=== PATIENT | male | born 1935 | race Caucasian/White ===

== ENCOUNTER → 2016-09-02 | Outpatient (CLI) | payer MEDICARE ==
[2016-09-02 16:45] LABS: BICARBONATE 28.3 MEQ/L (21.0-32.0); POTASSIUM 3.8 MEQ/L (3.5-5.1)
== END ==
LOC: PLAB 12:28
PROVIDERS: ATTEND Family Medicine
DX: I12.9 Hypertensive chronic kidney disease with stage 1 through stage 4 chronic kidney disease, or unspecified chronic kidney disease (principal); N18.3 Chronic kidney disease, stage 3 (moderate)
CPT/HCPCS: 36415; 80048

== ENCOUNTER → 2017-07-21 | Outpatient (CLI) | payer MEDICARE ==
[2017-07-21 09:23] LABS: AUTOMATED NEUTROPHIL # 2.8 TH/MM3 (1.8-7.7); EOSINOPHIL # 0.2 TH/MM3 (0-0.4); EOSINOPHIL % 4.3 % (0.0-4.0); HEMATOCRIT 44.8 % (39.0-51.0); HEMO FLAGS DIFF FINAL; LYMPH % 24.7 % (9.0-44.0); LYMPHOCYTE # 1.2 TH/MM3 (1.0-4.8); MEAN CORPUSCULAR HEMOGLOBIN 34.6 PG (27.0-34.0); MEAN CORPUSCULAR HGB CONC 34.6 % (32.0-36.0); MONO % 11.7 % (0.0-8.0); NEUT % 58.3 % (16.0-70.0); PLATELET COUNT 162 TH/MM3 (150-450); RED BLOOD COUNT 4.48 MIL/MM3 (4.50-5.90); RED CELL DISTRIBUTION WIDTH 12.9 % (11.6-17.2); WHITE BLOOD COUNT 4.8 TH/MM3 (4.0-11.0)
[2017-07-21 09:39] LABS: ANION GAP 8 MEQ/L (5-15); AST (GOT) 24 U/L (15-37); BICARBONATE 28.3 MEQ/L (21.0-32.0); BLOOD UREA NITROGEN 25 MG/DL (7-18); CHLORIDE 105 MEQ/L (98-107); GLOMERULAR FILTRATION RATE 46 ML/MIN (>89); GLUCOSE,FASTING 96 MG/DL (74-99); POTASSIUM 3.8 MEQ/L (3.5-5.1); SODIUM (NA) 141 MEQ/L (136-145)
[2017-07-21 09:44] LABS: ALKALINE PHOSPHATASE 32 U/L (45-117); ALT (GPT) 20 U/L (12-78); HDL CHOLESTEROL 57.1 MG/DL (40.0-60.0); LDL CHOLESTEROL 122 MG/DL (0-99); TOTAL BILIRUBIN ADULT 0.9 MG/DL (0.2-1.0)
== END ==
LOC: PLAB 07:28
PROVIDERS: ATTEND Family Medicine
DX: I10 Essential (primary) hypertension (principal); E78.2 Mixed hyperlipidemia; Z00.00 Encounter for general adult medical examination without abnormal findings
CPT/HCPCS: 36415; 80053; 80061; 85025

== ENCOUNTER → 2017-12-07 | Outpatient (CLI) | payer MEDICARE ==
[2017-12-07 10:17] LABS: AUTOMATED NEUTROPHIL # 3.8 TH/MM3 (1.8-7.7); BASOPHIL % 0.8 % (0.0-2.0); EOSINOPHIL # 0.1 TH/MM3 (0-0.4); EOSINOPHIL % 2.5 % (0.0-4.0); HEMATOCRIT 45.6 % (39.0-51.0); HEMO FLAGS DIFF FINAL; HEMOGLOBIN 15.6 GM/DL (13.0-17.0); LYMPHOCYTE # 1.1 TH/MM3 (1.0-4.8); MEAN CELL VOLUME 99.4 FL (80.0-100.0); MEAN CORPUSCULAR HGB CONC 34.2 % (32.0-36.0); MEAN PLATELET VOLUME 8.3 FL (7.0-11.0); MONO % 11.7 % (0.0-8.0); MONOCYTE # 0.7 TH/MM3 (0-0.9); PLATELET COUNT 171 TH/MM3 (150-450); RED BLOOD COUNT 4.59 MIL/MM3 (4.50-5.90); RED CELL DISTRIBUTION WIDTH 13.1 % (11.6-17.2); WHITE BLOOD COUNT 5.7 TH/MM3 (4.0-11.0)
[2017-12-07 10:42] LABS: ALBUMIN 3.7 GM/DL (3.4-5.0); ANION GAP 8 MEQ/L (5-15); AST (GOT) 24 U/L (15-37); BICARBONATE 28.2 MEQ/L (21.0-32.0); BLOOD UREA NITROGEN 16 MG/DL (7-18); CALCIUM 8.4 MG/DL (8.5-10.1); CHLORIDE 106 MEQ/L (98-107); CHOLESTEROL 173 MG/DL (120-200); CREATININE 1.21 MG/DL (0.60-1.30); GLOMERULAR FILTRATION RATE 58 ML/MIN (>89); GLUCOSE,FASTING 92 MG/DL (74-99); POTASSIUM 3.5 MEQ/L (3.5-5.1); SODIUM (NA) 142 MEQ/L (136-145); TRIGLYCERIDES 93 MG/DL (42-150)
[2017-12-07 10:45] LABS: ALKALINE PHOSPHATASE 30 U/L (45-117); ALT (GPT) 25 U/L (12-78); CHOLESTEROL/ HDL RATIO 3.78 RATIO; HDL CHOLESTEROL 45.7 MG/DL (40.0-60.0); LDL CHOLESTEROL 109 MG/DL (0-99); TOTAL BILIRUBIN ADULT 1.5 MG/DL (0.2-1.0); TOTAL PROTEIN 7.1 GM/DL (6.4-8.2)
== END ==
LOC: PLAB 08:33
DX: E78.2 Mixed hyperlipidemia (principal); N18.3 Chronic kidney disease, stage 3 (moderate)
CPT/HCPCS: 36415; 80053; 80061; 85025

== ENCOUNTER 2018-06-28 22:58 | Inpatient (IN) ==
[2018-06-28 23:51] LABS: Baso # (Auto) 0.1 th/mm3 (0.0-0.2); Baso % (Auto) 0.7 % (0.0-2.0); Eos # (Auto) 0.1 th/mm3 (0.0-0.4); Eos % (Auto) 1.5 % (0.0-4.0); Hematocrit 42.2 % (39.0-51.0); Hemoglobin 14.3 gm/dL (13.0-17.0); Lymph # (Auto) 0.7 th/mm3 (1.0-4.8); Mean Corpuscular HGB Conc 33.9 % (32.0-36.0); Mean Corpuscular Hemoglobin 33.5 pg (27.0-34.0); Mean Corpuscular Volume 99.1 fL (80.0-100.0); Mean Platelet Volume 9.6 fL (7.0-11.0); Mono # (Auto) 0.6 th/mm3 (0.0-0.9); Mono % (Auto) 7.4 % (0.0-8.0); Neut # (Auto) 6.5 th/mm3 (1.8-7.7); Neut % (Auto) 81.4 % (16.0-70.0); Platelet Count 118 th/mm3 (150-450); Red Blood Count 4.26 mil/mm3 (4.50-5.90); Red Cell Distribution Width 13.8 % (11.6-17.2)
[2018-06-29 00:13] LABS: Alkaline Phosphatase 33 U/L (45-117); Total Protein 6.6 g/dL (6.4-8.2); Troponin I 0.03 ng/mL (0.02-0.05)
[2018-06-29 00:15] LABS: Alanine Aminotransferase 42 U/L (12-78); Albumin 3.8 g/dL (3.4-5.0); Anion Gap 5 meq/L (5-15); Aspartate Aminotransferase 40 U/L (15-37); Blood Urea Nitrogen 35 mg/dL (7-18); Calcium 8.4 mg/dL (8.5-10.1); Carbon Dioxide 22.8 meq/L (21.0-32.0); Chloride 113 meq/L (98-107); Glomerular Filtration Rate 45 mL/min (>89); Glucose,Random 109 mg/dL (74-106); Potassium 4.9 meq/L (3.5-5.1); Sodium 141 meq/L (136-145)
--- NOTE | 2018-06-29 01:22 | ED ---
HPI General Chief Complaint: Shortness of Breath/Dyspnea Stated Complaint: trouble breathing Time Seen by Provider: 06/28/18 23:18 Source: patient and family Limitations: no limitations History of Present Illness The patient is an 82-year-old male with history of attention presented with complaint of shortness of breath all day. He stated started around 10 AM. He denies COPD. He quit smoking about 40 years ago. There is no fever or cough even though he stated that he felt warm. He is on Eliquis and he did not know why but after we obtained EKG shows Atrial fibrilation, no ST elevation or depression, and no arrhythmias. No significant T-wave inversions. Appears that he has atrial fibrillation which he confirmed. denies any chest pain at this time. No pleurisy. No palpitations. Hypertensive on arrival with stable vitals. Does not have Diagnosis of CHF or COPD MD Complaint: Reports shortness of breath Onset (ago): hour(s) (13) Severity: moderate Consistency/Duration: constant Relieving factors: nothing Exacerbating factors: exertion Known history of: Denies COPD, asthma, congestive heart failure, diabetes, recurrent pneumonia and aspiration pneumonia Associated symptoms: Reports wheezing; Denies chest pain, fever, cough, sputum production, palpitations, diaphoresis, nausea/vomiting, syncope, dizziness and lightheadedness Treatment prior to arrival: Reports none Related Data Home oxygen amount: none Home Medications Medication Instructions Recorded Confirmed apixaban [Eliquis] 5 mg PO DAILY 06/28/18 06/28/18 Allergies Allergy/AdvReac Type Severity Reaction Status Date / Time No Known Allergies Allergy Verified 06/28/18 23:05 Review of Systems ROS: all other systems reviewed are negative [facility] Medical History Medical History HTN (hypertension) (Acute) Social History Social History Substance History: No History of Abuse Second Hand Smoke Exposure: No Smoking Status: Never smoker How Often Do You Have a Drink Containing Alcohol: Never Recent Travel in [facility] within the Last 8 Weeks: No Recent Out of Country Travel within the Last 8 Weeks: No Immunization History Tetanus Immunization: <5 Years Exam Narrative Exam Narrative: GENERAL: alert and oriented in respiratory distress. SKIN: Focused skin assessment warm/dry. dry with poor turgor HEAD: Atraumatic. Normocephalic. EYES: Pupils equal and round. No scleral icterus. No injection or drainage. ENT: No nasal bleeding or discharge. Mucous membranes pink and moist. NECK: Trachea midline. No JVD. CARDIOVASCULAR: Regular rate and rhythm. No murmur appreciated. RESPIRATORY: accessory muscle use substernal. wheezing bilaterally. rales bilateral base. Breath sounds equal bilaterally. GASTROINTESTINAL: Abdomen soft, non-tender, nondistended. Hepatic and splenic margins not palpable. MUSCULOSKELETAL: No obvious deformities. No clubbing. No cyanosis. No edema. NEUROLOGICAL: Awake and alert. No obvious cranial nerve deficits. Motor grossly within normal limits. Normal speech. PSYCHIATRIC: Appropriate mood and affect; insight and judgment normal. Course Reevaluation(s) Reevaluation #1: Patient with market improvement after he was placed on BiPAP. Time: 00:35 Reevaluation #2: His blood pressure is increased again we will give another nitro. He is off the BiPAP at this time and is able to tolerate nasal cannula. Time: 03:45 Initial Documented Vital Signs Temperature 97.8 F 06/28/18 23:00 Pulse Rate 104 H 06/28/18 23:00 Respiratory Rate 20 06/28/18 23:00 Blood Pressure 182/107 H 06/28/18 23:00 Pulse Oximetry 91 L 06/28/18 23:00 Last Documented Vital Signs Temperature 97.8 F 06/28/18 23:00 Pulse Rate 90 06/29/18 05:00 Respiratory Rate 22 06/29/18 05:00 Blood Pressure 174/121 H 06/29/18 05:00 Pulse Oximetry 97 06/29/18 05:00 Critical Care Time Critical Care Time: Yes Total Critical Care Time: 30 Attestation: Aggregate critical care time was 30 minutes. Time to perform other separately billable procedures was not included in the critical care time. My time did not include minutes spent treating any other patients simultaneously or on activities that did not directly contribute to the patient's treatment. The services I provided to this patient were to treat and/or prevent clinically significant deterioration that could result in: I provided critical care services requiring my management, as noted below: Chart data review, documentation time, medication orders and management, vital sign assessments/reviewing monitor data, ordering and reviewing lab tests, ordering and interpreting/reviewing x-rays and diagnostic studies, care of the patient and discussion of the patient with the admitting physicians. Medical Decision Making MDM Narrative Medical decision making narrative: Patient CHF with elevated BNP and fluid overload on chest x-ray. Improved markedly with BiPAP and nitroglycerin. Breathing treatment was given. No signs of infectious process. Stent hypertension was placed on Cardene drip with improvement. ABGs were within normal limits no hypercapnia or hypoxemia. Diurese with Lasix. Admitted for further evaluation and treatment. A. fib with normal ventricular response hemodynamically stable alert and oriented without any focal neurologic deficits initial EKG and troponin are not suggestive of acute ischemia. Medical Screen Exam Complete: Yes Emergency Medical Condition: Yes Medical Records Medical records reviewed: Yes I reviewed the patient's medical records. Lab Data Lab results reviewed: Yes I reviewed the patient's lab results. Result diagrams: 06/28/18 23:36 06/28/18 23:36 Lab Results 06/28/18 06/28/18 06/28/18 Range/Units 23:36 23:36 23:36 WBC 8.0 (4.0-11.0) th/mm3 RBC 4.26 L (4.50-5.90) mil/mm3 Hgb 14.3 (13.0-17.0) gm/dL Hct 42.2 (39.0-51.0) % MCV 99.1 (80.0-100.0) fL MCH 33.5 (27.0-34.0) pg MCHC 33.9 (32.0-36.0) % RDW 13.8 (11.6-17.2) % Plt Count 118 L (150-450) th/mm3 MPV 9.6 (7.0-11.0) fL Neut % (Auto) 81.4 H (16.0-70.0) % Lymph % (Auto) 9.0 (9.0-44.0) % [place] % (Auto) 7.4 (0.0-8.0) % Eos % (Auto) 1.5 (0.0-4.0) % Baso % (Auto) 0.7 (0.0-2.0) % Neut # (Auto) 6.5 (1.8-7.7) th/mm3 Lymph # (Auto) 0.7 L (1.0-4.8) th/mm3 [place] # (Auto) 0.6 (0.0-0.9) th/mm3 Eos # (Auto) 0.1 (0.0-0.4) th/mm3 Baso # (Auto) 0.1 (0.0-0.2) th/mm3 WBC Differential . Differential Comment Auto diff final Puncture Site Patient Temperature O2 Saturation (90-100) % ABG pH (7.380-7.420) ABG pCO2 (38-42) mmHg ABG pO2 (61-120) mmHg ABG HCO3 (22-26) mmol/L ABG O2 Content (12.0-20.0) Vol % ABG Base Excess (-2-2) mmol/L ABG Methemoglobin (0-2) % Micha Test Hemoglobin (12.0-16.0) G/DL Carboxyhemoglobin (0-4) % O2 Delivery Device Liter Flow L/M Critical Value Sodium 141 (136-145) meq/L Potassium 4.9 (3.5-5.1) meq/L Chloride 113 H (98-107) meq/L Carbon Dioxide 22.8 (21.0-32.0) meq/L Anion Gap 5 (5-15) meq/L BUN 35 H (7-18) mg/dL Creatinine 1.49 H (0.60-1.30) mg/dL Estimated GFR 45 L (>89) mL/min Random Glucose 109 H (74-106) mg/dL Lactic Acid 0.8 (0.4-2.0) mmol/L Calcium 8.4 L (8.5-10.1) mg/dL Total Bilirubin 1.3 H (0.2-1.0) mg/dL AST 40 H (15-37) U/L ALT 42 (12-78) U/L Alkaline Phosphatase 33 L (45-117) U/L Troponin I 0.03 (0.02-0.05) ng/mL B-Natriuretic Peptide (0-100) pg/mL Total Protein 6.6 (6.4-8.2) g/dL Albumin 3.8 (3.4-5.0) g/dL 06/28/18 06/29/18 Range/Units 23:36 00:10 WBC (4.0-11.0) th/mm3 RBC (4.50-5.90) mil/mm3 Hgb (13.0-17.0) gm/dL Hct (39.0-51.0) % MCV (80.0-100.0) fL MCH (27.0-34.0) pg MCHC (32.0-36.0) % RDW (11.6-17.2) % Plt Count (150-450) th/mm3 MPV (7.0-11.0) fL Neut % (Auto) (16.0-70.0) % Lymph % (Auto) (9.0-44.0) % [place] % (Auto) (0.0-8.0) % Eos % (Auto) (0.0-4.0) % Baso % (Auto) (0.0-2.0) % Neut # (Auto) (1.8-7.7) th/mm3 Lymph # (Auto) (1.0-4.8) th/mm3 [place] # (Auto) (0.0-0.9) th/mm3 Eos # (Auto) (0.0-0.4) th/mm3 Baso # (Auto) (0.0-0.2) th/mm3 WBC Differential Differential Comment Puncture Site Right radial Patient Temperature 98.6 O2 Saturation 96 (90-100) % ABG pH 7.42 (7.380-7.420) ABG pCO2 34 L (38-42) mmHg ABG pO2 94 (61-120) mmHg ABG HCO3 22 (22-26) mmol/L ABG O2 Content 19.4 (12.0-20.0) Vol % ABG Base Excess -2.3 L (-2-2) mmol/L ABG Methemoglobin 0.6 (0-2) % Micha Test Present Hemoglobin 14.3 (12.0-16.0) G/DL Carboxyhemoglobin 1.0 (0-4) % O2 Delivery Device Nasal cannula Liter Flow 3.00 L/M Critical Value No Sodium (136-145) meq/L Potassium (3.5-5.1) meq/L Chloride (98-107) meq/L Carbon Dioxide (21.0-32.0) meq/L Anion Gap (5-15) meq/L BUN (7-18) mg/dL Creatinine (0.60-1.30) mg/dL Estimated GFR (>89) mL/min Random Glucose (74-106) mg/dL Lactic Acid (0.4-2.0) mmol/L Calcium (8.5-10.1) mg/dL Total Bilirubin (0.2-1.0) mg/dL AST (15-37) U/L ALT (12-78) U/L Alkaline Phosphatase (45-117) U/L Troponin I (0.02-0.05) ng/mL B-Natriuretic Peptide 1180 H (0-100) pg/mL Total Protein (6.4-8.2) g/dL Albumin (3.4-5.0) g/dL Imaging Data Radiologist's impression: Chest X-Ray 06/29/18 00:42 CONCLUSION: Mild congestive heart failure. ECG Data Attestation: I personally reviewed and interpreted this ECG as follows: Interpretation: Atrial fibrillation with a ventricular rate of [address]-T wave abnormalities. Normal axis. No signs of acute ischemia. Discharge Plan Discharge Disposition Patient Disposition: 30 Still Patient Discharge Condition Condition: Good Discharge Details Diagnosis: New onset of congestive heart failure, Atrial fibrillation, Acute kidney injury superimposed on chronic kidney disease Physicians Team ED Provider: Dk Bell Primary Care Provider: Isabela Aviles Attending Provider: Paulina Carvalho Other Providers: [facility],Insurance Status ED Status: Admitted Patient
[2018-06-29 01:30] LABS: ABG Base Excess -2.3 mmol/L (-2-2); ABG PCO2 34 mmHg (38-42); ABG PO2 94 mmHg (61-120)
--- NOTE | 2018-06-29 02:03 | XR ---
EXAM DATE: 06/29/2018 1:41 AM EST AGE/SEX: 82 years / Male INDICATIONS: Shortness of breath worsening over the past month, really bad the past few days. CLINICAL DATA: This is the patient's initial encounter. Patient reports that signs and symptoms have been present for 3 days and indicates a pain score of 0/10. MEDICAL/SURGICAL HISTORY: Non-responsive. Non-responsive. COMPARISON: No prior exams available for comparison. FINDINGS: Heart size enlarged. Mild edema pattern with bilateral effusions. No pneumothorax. CONCLUSION: Mild congestive heart failure. Electronically signed by: Zan Degroot MD 06/29/2018 2:02 AM EST
[2018-06-29] MEDS ORDERED: niCARdipine Inj 25 MG in Sodium Chlor 0.9% Inj 240 ML IV.CONT PRN (04:37)
[2018-06-29] MEDS ORDERED: Bisacodyl 10 MG Supp RECTAL PRN (05:08)
[2018-06-29] MEDS ORDERED: Acetaminophen 325 MG Tablet PO PRN (05:08)
[2018-06-29] MEDS ORDERED: amLODIPine 5 MG Tablet PO SCH (11:15)
--- NOTE | 2018-06-29 11:21 | P.HPIM ---
History of Present Illness Primary Care Physician: Isabela Aviles MD History of Present Illness: This patient is an 82-year-old male with a diagnosis of atrial fibrillation on Eliquis. As per the patient he also has a diagnosis of hypertension. The patient says he began to feel short of breath over the past few days and his symptoms have been worsening. He was also given short of breath on exertion and was having difficulty lying flat and sleeping at night. He was also having a cough, no purulent sputum production. No fevers or chills. No chest pain. No palpitations. He came into the emergency department for evaluation and was found to have a significantly elevated blood pressure. Chest x-ray showed findings consistent with pulmonary vascular congestion. Past medical history atrial fibrillation, hypertension Surgical history cataracts Family history noncontributory Social history the patient admits to smoking with the patient was in his 20s for approximately 5 years. He also drink alcohol socially for about 30 years approximately 1 drink per night. He denies any history of drug use. Inpatient Certification: I certify that the inpatient services were ordered in accordance with Medicare regulations governing the order. This includes certification that hospital inpatient services are reasonable and necessary and in the case of services not specified as inpatient-only under 42 CFR 419.22(n), that they are appropriately provided as inpatient services in accordance to with the 2-midnight benchmark under 43 CFR 412.3(e) Estimated Total Length of Stay (Days): 3 Plans for Post Hospital Care: Not yet determined Review of Systems All other systems reviewed negative except as stated in [facility] - History History Provided By: Patient, Family Member - Medical History Medical History: Medical History (Last Reviewed 06/29/18 @ 05:23 by Dk Bell DO) HTN (hypertension) - Tobacco History Second Hand Smoke Exposure: No Smoking Status: Never smoker - Alcohol History How Often Do You Have a Drink Containing Alcohol: Never - Substance Use History Substance History: No History of Abuse - Travel History Recent Travel in the [place] Within the Last 8 Weeks: No Recent Travel Out of the Country Within the Last 8 Weeks: No - Immunization History Tetanus Immunization: <5 Years Medications and Allergies Active Medications: Active Medications Acetaminophen (Tylenol) 650 mg PO Q4H PRN PRN Reason: Temp > 100.4 Amlodipine Besylate (Norvasc) 5 mg PO DAILY SHANE Apixaban (Eliquis) 5 mg PO DAILY [facility] Bisacodyl (Dulcolax Supp) 10 mg RECTAL DAILY PRN PRN Reason: SEVERE CONSITIPATION Carvedilol (Coreg) 3.125 mg PO BID SHANE Furosemide (Lasix Inj) 40 mg IV.PUSH BID@0900,1800 [facility] Ondansetron HCl (Zofran Inj) 4 mg IV.PUSH Q6H PRN PRN Reason: NAUSEA OR VOMITING Sennosides (Senokot) 17.2 mg PO Q12H PRN PRN Reason: Moderate Constipation Sodium Chloride (Ns Flush) 2 ml IV.FLUSH BID SHANE Sodium Chloride (Ns Flush) 2 ml IV.FLUSH UNSCH PRN PRN Reason: FLUSH AFTER USING IV ACCESS Allergies Allergy/AdvReac Type Severity Reaction Status Date / Time No Known Allergies Allergy Verified 06/28/18 23:05 Home Medications Medication Instructions Recorded Confirmed Type apixaban [Eliquis] 5 mg PO DAILY 06/28/18 06/28/18 History Exam Vital signs: Vital Signs 06/28/18 23:00 06/28/18 23:05 06/28/18 23:33 Temperature 97.8 F Pulse Rate 104 H 86 89 Respiratory Rate 20 22 18 Blood Pressure 182/107 H 169/115 H Pulse Oximetry 91 L 95 06/28/18 23:51 06/28/18 23:59 06/29/18 00:27 Temperature Pulse Rate 89 83 Respiratory Rate 18 18 Blood Pressure Pulse Oximetry 100 06/29/18 01:00 06/29/18 01:45 06/29/18 02:57 Temperature Pulse Rate 94 H 92 H Respiratory Rate 21 16 20 Blood Pressure 177/109 H Pulse Oximetry 100 100 06/29/18 03:05 06/29/18 04:34 06/29/18 04:35 Temperature Pulse Rate 97 H Respiratory Rate 21 21 Blood Pressure 189/130 H Pulse Oximetry 97 97 06/29/18 05:00 06/29/18 05:15 06/29/18 05:30 Temperature Pulse Rate 90 99 H 100 H Respiratory Rate 22 22 24 Blood Pressure 174/121 H 133/94 H 154/80 H Pulse Oximetry 97 97 95 06/29/18 05:45 06/29/18 07:05 Temperature 97.8 F Pulse Rate 102 H 101 H Respiratory Rate 23 22 Blood Pressure 145/70 H 131/84 Pulse Oximetry 95 97 Intake & Output 06/28/18 06/29/18 06/29/18 18:59 06:59 18:59 Output Total 950 / 950 400 / 400 Balance -950 / -950 -400 / -400 Weight 77.111 kg Output: Urine 950 / 950 400 / 400 Other: # Voids 1 Narrative: General patient complains of shortness of breath when lying flat. HEENT extraocular movements are intact, atraumatic Cardiovascular S1-S2 audible, irregularly irregular rhythm Respiratory bibasilar crackles Abdomen soft, nontender, nondistended, normal bowel sounds Extremities 1+ pitting edema bilateral lower extremities up to the shins Neuro patient moves all 4 extremities, sensation is intact bilaterally Results - Labs CBC & Chem 7: 06/28/18 23:36 06/28/18 23:36 Labs: Short CBC 06/28/18 Range/Units 23:36 WBC 8.0 (4.0-11.0) th/mm3 Hgb 14.3 (13.0-17.0) gm/dL Hct 42.2 (39.0-51.0) % Plt Count 118 L (150-450) th/mm3 BMP 06/28/18 23:36 Sodium 141 Potassium 4.9 Chloride 113 H Carbon Dioxide 22.8 BUN 35 H Creatinine 1.49 H Calcium 8.4 L Cardiac Enzymes 06/28/18 Range/Units 23:36 Troponin I 0.03 (0.02-0.05) ng/mL Liver Function 06/28/18 Range/Units 23:36 Total Bilirubin 1.3 H (0.2-1.0) mg/dL AST 40 H (15-37) U/L ALT 42 (12-78) U/L Alkaline Phosphatase 33 L (45-117) U/L Albumin 3.8 (3.4-5.0) g/dL - Imaging Impressions Chest X-Ray 06/29/18 00:42 CONCLUSION: Mild congestive heart failure. Caprini VTE Risk Assessment Caprini VTE Risk Assessment: Moderate/High Risk (score >= 2) Caprini Risk Assessment Model: Point Value = 1 Point Value = 2 Point Value = 3 Point Value = 5 Age 41-60 Minor surgery BMI > 25 kg/m2 Swollen legs Varicose veins or History of unexplained or recurrent spontaneous Oral contraceptives or hormone replacement Sepsis (< 1 month) Serious lung disease, including pneumonia (< 1 month) Abnormal pulmonary function Acute myocardial infarction Congestive heart failure (< 1 month) History of inflammatory bowel disease Medical patient at bed rest Age 61-74 Arthroscopic surgery Major open surgery (> 45 min) Laparoscopic surgery (> 45 min) Malignancy Confined to bed (> 72 hours) Immobilizing plaster cast Central venous access Age >= 75 History of VTE Family history of VTE Factor V Leiden Prothrombin [id number] Lupus anticoagulant Anticardiolipin antibodies Elevated serum homocysteine Heparin-induced thrombocytopenia Other congenital or acquired thrombophilia Stroke (< 1 month) Elective arthroplasty Hip, pelvis, or leg fracture Acute spinal cord injury (< 1 month) Prophylaxis Regimen: Total Risk Factor Score Risk Level Prophylaxis Regimen 0-1 Low Early ambulation 2 Moderate Order ONE of the following: *Sequential Compression Device (SCD) *Heparin 5000 units SQ BID 3-4 Higher Order ONE of the following medications: *Heparin 5000 units SQ TID *Enoxaparin/Lovenox 40 mg SQ daily (WT < 150 kg, CrCl > 30 mL/min) *Enoxaparin/Lovenox 30 mg SQ daily (WT < 150 kg, CrCl > 10-29 mL/min) *Enoxaparin/Lovenox 30 mg SQ BID (WT < 150 kg, CrCl > 30 mL/min) AND/OR *Sequential Compression Device (SCD) 5 or more Highest Order ONE of the following medications: *Heparin 5000 units SQ TID (Preferred with Epidurals) *Enoxaparin/Lovenox 40 mg SQ daily (WT < 150 kg, CrCl > 30 mL/min) *Enoxaparin/Lovenox 30 mg SQ daily (WT < 150 kg, CrCl > 10-29 mL/min) *Enoxaparin/Lovenox 30 mg SQ BID (WT < 150 kg, CrCl > 30 mL/min) AND *Sequential Compression Device (SCD) Assessment and Plan - Plan This patient is an 82-year-old male with a diagnosis of atrial fibrillation on Eliquis. As per the patient he also has a diagnosis of hypertension. The patient says he began to feel short of breath over the past few days and his symptoms have been worsening. He was also given short of breath on exertion and was having difficulty lying flat and sleeping at night. He was also having a cough, no purulent sputum production. No fevers or chills. No chest pain. No palpitations. He came into the emergency department for evaluation and was found to have a significantly elevated blood pressure. Chest x-ray showed findings consistent with pulmonary vascular congestion. 1. Acute congestive heart failure exacerbation 2. Acute hypoxic respiratory failure secondary to #1 The patient presented with the findings mentioned above. BNP is elevated Chest x-ray shows pulmonary vascular congestion On physical examination the patient has bibasilar crackles and bilateral lower extremity pitting edema. Patient was started on IV Lasix. We will monitor strict ins and outs, continue to diurese the patient. 2D echocardiogram was done, we will follow-up results of the 2D echocardiogram. I reviewed the patient's records however I do not see a previous ejection fraction. Patient was found to be hypoxic on admission. This is likely secondary to the congestive heart failure exacerbation and pulmonary vascular congestion. Currently he is on supplemental oxygen. We will continue supplemental oxygen as needed. 2. Atrial fibrillation Heart rate currently in the low 100s. He is currently on Coreg, Coreg will be continued for rate control. Continue Eliquis. 3. Hypertensive urgency The patient has significantly elevated blood pressure on arrival. He was initially started on a Cardene drip. Blood pressure is now under control. Cardene drip will be stopped. Norvasc will be added to the patient's medication regimen. His blood pressure medications will be adjusted as needed. DVT prophylaxis, patient is currently on Eliquis.
--- NOTE | 2018-06-29 13:03 | P.PNADD ---
Addendum to Inpatient Note Reason for Addendum: Additional Documentation (ECHO done 12/08/17 at [facility] with EF 60% and moderate mitral regurgitation. Other valve leakages and sclerotic aortic valve without stenosis. slb)
--- NOTE | 2018-06-29 15:36 | MB ---
cc: Leland Khan MD DATE: 06/29/2018 REASON FOR CONSULTATION: Congestive heart failure, atrial fibrillation. HISTORY OF PRESENT ILLNESS: The patient is an 82-year-old white male with a history of hypertension, atrial fibrillation, which is probably chronic, who presented to the hospital with increased shortness of breath. The patient states for at least the last several months, he has had increasing dyspnea with minimal to no exertion. These symptoms have worsened in severity over the last few weeks. Often he has had paroxysmal nocturnal dyspnea. In addition, he reports a several month history of waxing and waning, left greater than right, pedal edema. The patient denies palpitations, dizziness, syncope, near syncope, orthopnea, fevers, chest pain. He states his primary care doctor, Dr. Isabela Aviles, started him on Eliquis a few months ago. PAST MEDICAL HISTORY: 1. Hypertension. 2. Atrial fibrillation, probably chronic. CARDIAC MEDICATIONS AT HOME: Apixaban 5 mg daily. CARDIAC MEDICATIONS HERE IN THE HOSPITAL: 1. Amlodipine 5 mg daily. 2. Apixaban 5 mg p.o. daily. 3. Carvedilol 3.125 mg p.o. b.i.d. 4. Furosemide 40 mg IV b.i.d. ALLERGIES: NO KNOWN DRUG ALLERGIES. FAMILY HISTORY: Noncontributory. SOCIAL HISTORY: The patient quit smoking 40 years ago. He denies alcohol abuse. REVIEW OF SYSTEMS: As in the history of present illness, otherwise negative or noncontributory. He also denies headache, abdominal pain, melena, dyspepsia, bright red blood per rectum, unilateral weakness or numbness. PHYSICAL EXAMINATION: VITAL SIGNS: His blood pressure 117/73 with a pulse of 96, respirations 15. GENERAL: He is a well-developed, thin white male, in no acute distress. NECK: Jugular venous pressure is 10 cm of water. Carotid pulses are 2+ bilaterally and without bruits. CHEST: Diminished breath sounds at the bases, left greater than right. CARDIAC: He has a tachycardic irregular rhythm without S3 or S4. ABDOMEN: He has a soft, nontender abdomen. Bowel sounds are present. There is no definite hepatosplenomegaly. EXTREMITIES: Trace pretibial edema bilaterally, left greater than right. LABORATORY DATA: EKG from 06/29/2018 shows atrial fibrillation, otherwise normal. Chest x-ray shows bilateral pleural effusions. LABORATORY DATA: Includes normal CBC. Potassium 4.9, BUN 35, creatinine 1.49. Troponin 0.03. Brain natriuretic peptide level 1180. IMPRESSION: Congestive heart failure, atrial fibrillation with elevated heart rates in this 82-year-old white male with a history of hypertension, atrial fibrillation, which is probably chronic. At this time, his heart rates are mostly under control, although he does have episodes of tachycardia at rest. There is no definite evidence for acute coronary syndrome. Chest x-ray, recent symptoms, laboratory data are all consistent with congestive heart failure. His ejection fraction is excellent by echo. I suspect the congestive heart failure was precipitated by atrial fibrillation with a rapid ventricular response, possibly in combination with diastolic dysfunction. With respect to his thromboembolic risk, it is at least moderately elevated. Biatrial enlargement on echo suggest his atrial fibrillation is chronic. RECOMMENDATIONS: 1. Would favor stopping amlodipine and increasing the carvedilol dose as much as possible. 2. The apixaban dose should be b.i.d. 3. Continue diuresis. 4. He can be discharged home once his congestive heart failure has cleared and his heart rates are under good control. MD TED Harris/ct , 03:02 PM , 03:09 PM [email or web address]
--- NOTE | 2018-06-29 15:38 | ECG ---
Date Performed: 06/29/2018 Time Performed: 01:16:58 PTAGE: 82 years EKG: ATRIAL FIBRILLATION ABNORMAL RHYTHM ECG NO PREVIOUS TRACING DOCTOR: Emily Brooke Interpretating Date/Time 06/29/2018 15:35:56
[2018-06-29] MEDS: Carvedilol 12.5 MG Tablet PO SCH ×2 (17:12→20:38)
--- NOTE | 2018-06-29 18:24 | ECHRPT ---
Indication: HEART FAILURE CONCLUSIONS The left ventricular systolic function is normal with an estimated ejection fraction in the range of 60-65%. Normal left ventricular size. Mild concentric left ventricular hypertrophy. No regional wall motion abnormalities are present. The left atrial size is [id number] dilated. Mild thickening of the mitral valve leaflets. Calcification of the anterior mitral valve leaflet. Mild mitral valve regurgitation. Mild mitral annular calcification. Diffuse calcification of the aortic valve. Mild aortic valve regurgitation. The pulmonary valve is not well visualized. The inferior vena cava is dilated. There is less than 50% respiratory change in dimension of the inferior vena cava (abnormal). BP: / HR: Rhythm: Sinus MEASUREMENTS (Male / Female) Normal Values Technical Quality:Fair 2D ECHO LV Diastolic Diameter PLAX 5.0 cm 4.2 - 5.9 / 3.9 - 5.3 cm LV Systolic Diameter PLAX 3.2 cm IVS Diastolic Thickness 1.3 cm 0.6 - 1.0 / 0.6 - 0.9 cm LVPW Diastolic Thickness 1.4 cm 0.6 - 1.0 / 0.6 - 0.9 cm LV Relative Wall Thickness 0.5 LVOT Diameter 2.1 cm LA Systolic Diameter LX 4.6 cm 3.0 - 4.0 / 2.7 - 3.8 cm LV Ejection Fraction MOD 4C 64.8 % LV Ejection Fraction 4C AL 65.5 % M-MODE Aortic Root Diameter MM 2.8 cm LA Systolic Diameter MM 4.3 cm LA Ao Ratio MM 1.5 AV Cusp Separation MM 1.6 cm DOPPLER AV Peak Velocity 181.0 cm/s AV Peak Gradient 13.1 mmHg AV Mean Gradient 4.5 mmHg AV Velocity Time Integral 20.8 cm LVOT Peak Velocity 109.9 cm/s LVOT Peak Gradient 4.8 mmHg LVOT Velocity Time Integral 18.6 cm AV Area Cont Eq vti 3.1 cm AV Area Cont Eq pk 2.1 cm MV Area PHT 4.5 cm LV E' Lateral Velocity 11.0 cm/s LV E' Septal Velocity 9.0 cm/s PV Peak Velocity 85.5 cm/s PV Peak Gradient 2.9 mmHg FINDINGS LEFT VENTRICLE The left ventricular systolic function is normal with an estimated ejection fraction in the range of 60-65%. Normal left ventricular size. Mild concentric left ventricular hypertrophy. No regional wall motion abnormalities are present. RIGHT VENTRICLE Normal right ventricular size and systolic function. LEFT ATRIUM The left atrial size is [id number] dilated. RIGHT ATRIUM The right atrial size is normal. ATRIAL SEPTUM Normal atrial septal thickness without atrial level shunting by limited color doppler interrogation. AORTA The aortic root and proximal ascending aorta are normal in size on limited imaging. MITRAL VALVE Mild thickening of the mitral valve leaflets. Calcification of the anterior mitral valve leaflet. Mild mitral valve regurgitation. Mild mitral annular calcification. AORTIC VALVE Trileaflet aortic valve. Diffuse calcification of the aortic valve. Mild aortic valve regurgitation. TRICUSPID VALVE Structurally normal tricuspid valve. No tricuspid valve stenosis or regurgitation. PULMONARY VALVE The pulmonary valve is not well visualized. VESSELS The inferior vena cava is dilated. There is less than 50% respiratory change in dimension of the inferior vena cava (abnormal). PERICARDIUM No pericardial effusion. Burton Nielsen (Electronically Signed) Final Date:29 June 2018 18:23
[2018-06-30 07:49] LABS: Calcium 8.8 mg/dL (8.5-10.1); Carbon Dioxide 26.1 meq/L (21.0-32.0); Magnesium 2.3 mg/dL (1.5-2.5); Potassium 3.5 meq/L (3.5-5.1)
[2018-06-30] MEDS: Carvedilol 12.5 MG Tablet PO SCH ×2 (08:44→21:18)
--- NOTE | 2018-06-30 10:09 | P.PNCA ---
Subjective Interval history: Feeling "much better." No dyspnea, CP, dizziness, palpitations. Slept well. Medications and Allergies Active Medications: Active Medications Acetaminophen (Tylenol) 650 mg PO Q4H PRN PRN Reason: Temp > 100.4 Apixaban (Eliquis) 5 mg PO BID [facility] Last Admin: 06/30/18 08:44 Dose: 5 mg Bisacodyl (Dulcolax Supp) 10 mg RECTAL DAILY PRN PRN Reason: SEVERE CONSITIPATION Carvedilol (Coreg) 12.5 mg PO BID [facility] Last Admin: 06/30/18 08:44 Dose: 12.5 mg Furosemide (Lasix Inj) 40 mg IV.PUSH BID@0900,1800 [facility] Last Admin: 06/30/18 08:44 Dose: 40 mg Ondansetron HCl (Zofran Inj) 4 mg IV.PUSH Q6H PRN PRN Reason: NAUSEA OR VOMITING Sennosides (Senokot) 17.2 mg PO Q12H PRN PRN Reason: Moderate Constipation Sodium Chloride (Ns Flush) 2 ml IV.FLUSH BID [facility] Last Admin: 06/30/18 08:43 Dose: 2 ml Sodium Chloride (Ns Flush) 2 ml IV.FLUSH UNSCH PRN PRN Reason: FLUSH AFTER USING IV ACCESS Allergies Allergy/AdvReac Type Severity Reaction Status Date / Time No Known Allergies Allergy Verified 06/28/18 23:05 Home Medications Medication Instructions Recorded Confirmed Type apixaban [Eliquis] 5 mg PO DAILY 06/28/18 06/28/18 History Physical Exam Vital signs: Vital Signs 06/29/18 12:15 06/29/18 13:02 06/29/18 16:00 Temperature 97.9 F Pulse Rate 94 H 96 H 99 H Respiratory Rate 18 15 18 Blood Pressure 136/78 117/73 126/93 H Pulse Oximetry 97 95 94 L 06/29/18 19:00 06/29/18 20:00 06/29/18 21:00 Temperature 97.8 F Pulse Rate 100 H 88 86 Respiratory Rate 18 Blood Pressure 141/97 H Pulse Oximetry 93 L 06/29/18 22:00 06/29/18 23:00 06/29/18 23:25 Temperature 98.6 F Pulse Rate 80 82 86 Respiratory Rate 18 Blood Pressure 101/60 Pulse Oximetry 93 L 06/30/18 00:00 06/30/18 01:00 06/30/18 02:00 Temperature Pulse Rate 83 75 85 Respiratory Rate Blood Pressure Pulse Oximetry 06/30/18 03:00 06/30/18 03:35 06/30/18 04:00 Temperature 98.5 F Pulse Rate 86 72 81 Respiratory Rate 18 Blood Pressure 112/70 Pulse Oximetry 94 L 06/30/18 05:00 06/30/18 06:00 06/30/18 07:00 Temperature Pulse Rate 88 88 94 H Respiratory Rate Blood Pressure Pulse Oximetry 100 06/30/18 08:00 06/30/18 09:00 Temperature 97.5 F L Pulse Rate 94 H 94 H Respiratory Rate 22 Blood Pressure 143/88 H Pulse Oximetry 100 Intake & Output 06/29/18 06/30/18 06/30/18 18:59 06:59 18:59 Intake Total 890 / 890 360 / 360 Output Total 1800 / 1800 1725 / 1725 Balance -910 / -910 -1365 / -1365 Weight 79 kg Intake: IV 250 / 250 Cardene Inj 25 MG In NS Inj 240 250 / 250 ML @ 5 MG/HR 50 mls/hr IV.CONT TITRATE PRN Rx#:[id number] Oral 640 / 640 360 / 360 Output: Urine 1800 / 1800 1725 / 1725 Other: # Voids 2 Date of Last Bowel Movement 06/28/18 # Bowel Movements 0 - Constitutional no acute distress - Routine Neck Exam Absent: JVD - Routine Respiratory Exam Comments: Decreased breath sounds bases. - Routine Cardiovascular Exam Present: S1, S2. Absent: gallop, irregular rhythm Comments: I-II/ systolic murmur along left sternal border - Routine Abdominal Exam Present: soft, normoactive bowel sounds. Absent: tenderness, organomegaly - Routine Extremities Exam Absent: cyanosis, clubbing, edema Results 06/28/18 23:36 06/30/18 06:17 Cardiac Enzymes 06/28/18 06/28/18 Range/Units 23:36 23:36 AST 40 H (15-37) U/L Troponin I 0.03 (0.02-0.05) ng/mL B-Natriuretic Peptide 1180 H (0-100) pg/mL Coagulation 06/28/18 Range/Units 23:36 B-Natriuretic Peptide 1180 H (0-100) pg/mL CBC 06/28/18 Range/Units 23:36 WBC 8.0 (4.0-11.0) th/mm3 RBC 4.26 L (4.50-5.90) mil/mm3 Hgb 14.3 (13.0-17.0) gm/dL Hct 42.2 (39.0-51.0) % Plt Count 118 L (150-450) th/mm3 Neut # (Auto) 6.5 (1.8-7.7) th/mm3 Lymph # (Auto) 0.7 L (1.0-4.8) th/mm3 [place] # (Auto) 0.6 (0.0-0.9) th/mm3 Eos # (Auto) 0.1 (0.0-0.4) th/mm3 Baso # (Auto) 0.1 (0.0-0.2) th/mm3 Comprehensive Metabolic Panel 06/28/18 06/30/18 Range/Units 23:36 06:17 Sodium 141 142 (136-145) meq/L Potassium 4.9 3.5 D (3.5-5.1) meq/L Chloride 113 H 107 (98-107) meq/L Carbon Dioxide 22.8 26.1 (21.0-32.0) meq/L BUN 35 H 27 H (7-18) mg/dL Creatinine 1.49 H 1.33 H (0.60-1.30) mg/dL Calcium 8.4 L 8.8 (8.5-10.1) mg/dL AST 40 H (15-37) U/L ALT 42 (12-78) U/L Alkaline Phosphatase 33 L (45-117) U/L Total Protein 6.6 (6.4-8.2) g/dL Albumin 3.8 (3.4-5.0) g/dL Intake and Output 06/29/18 06/30/18 06/30/18 22:59 06:59 14:59 Intake Total 640 / 640 360 / 360 Output Total 1400 / 1400 1725 / 1725 Balance -760 / -760 -1365 / -1365 Intake: Oral 640 / 640 360 / 360 Output: Urine 1400 / 1400 172 / 1725 Other: # Voids 2 Date of Last Bowel Movement 11/26/18 # Bowel Movements 0 Weight 79 kg - Imaging and Cardiology Imaging: Impressions Chest X-Ray 06/29/18 00:42 CONCLUSION: Mild congestive heart failure. Assessment and Plan - Assessment (1) Congestive heart failure Code(s): I50.9 - Heart failure, unspecified Status: Acute Plan: Doing well. Vigorous diuresis since admission. EF 60-65% by echo. Suspect his CHF was precipitated by elevated HR's in the setting of atrial fib and diastolic dysfunction. RECOMMEND continue diuresis, consider discharge later today or tomorrow am, increase carvedilol (2) Atrial fibrillation Code(s): I48.91 - Unspecified atrial fibrillation Status: Chronic Plan: Stable. HR's acceptable. Continues on apixaban. Suspect atrial fib largely chronic. - Plan Code Status: full Discussed Condition With: patient (1) Congestive heart failure Qualifiers: Heart failure type: diastolic Heart failure chronicity: acute Qualified Code (s): I50.31 - Acute diastolic (congestive) heart failure (2) Atrial fibrillation Qualifiers: Atrial fibrillation type: chronic Qualified Code(s): I48.2 - Chronic atrial fibrillation
--- NOTE | 2018-06-30 10:36 | P.PN ---
Subjective Interval history: telemetry in a fib rhythm- rate 90s to low 100s feels great up and ambualting in his room- even danced no chest discomfort left leg size- bigger than right- no calf tenderness , no calf pain Physical Exam Vital signs: Vital Signs 06/29/18 12:15 06/29/18 13:02 06/29/18 16:00 Temperature 97.9 F Pulse Rate 94 H 96 H 99 H Respiratory Rate 18 15 18 Blood Pressure 136/78 117/73 126/93 H Pulse Oximetry 97 95 94 L 06/29/18 19:00 06/29/18 20:00 06/29/18 21:00 Temperature 97.8 F Pulse Rate 100 H 88 86 Respiratory Rate 18 Blood Pressure 141/97 H Pulse Oximetry 93 L 06/29/18 22:00 06/29/18 23:00 06/29/18 23:25 Temperature 98.6 F Pulse Rate 80 82 86 Respiratory Rate 18 Blood Pressure 101/60 Pulse Oximetry 93 L 06/30/18 00:00 06/30/18 01:00 06/30/18 02:00 Temperature Pulse Rate 83 75 85 Respiratory Rate Blood Pressure Pulse Oximetry 06/30/18 03:00 06/30/18 03:35 06/30/18 04:00 Temperature 98.5 F Pulse Rate 86 72 81 Respiratory Rate 18 Blood Pressure 112/70 Pulse Oximetry 94 L 06/30/18 05:00 06/30/18 06:00 06/30/18 07:00 Temperature Pulse Rate 88 88 94 H Respiratory Rate Blood Pressure Pulse Oximetry 100 06/30/18 08:00 06/30/18 09:00 06/30/18 10:00 Temperature 97.5 F L Pulse Rate 94 H 94 H 106 H Respiratory Rate 22 Blood Pressure 143/88 H Pulse Oximetry 100 Intake & Output 06/29/18 06/30/18 06/30/18 18:59 06:59 18:59 Intake Total 890 / 890 360 / 360 Output Total 1800 / 1800 1725 / 1725 Balance -910 / -910 -1365 / -1365 Weight 79 kg Intake: IV 250 / 250 Cardene Inj 25 MG In NS Inj 240 250 / 250 ML @ 5 MG/HR 50 mls/hr IV.CONT TITRATE PRN Rx#:[id number] Oral 640 / 640 360 / 360 Output: Urine 1800 / 1800 1725 / 1725 Other: # Voids 2 Date of Last Bowel Movement 06/28/18 # Bowel Movements 0 Narrative: awake and alert, no acute distress anicteric neck supple lungs- no rales irregularly irregular rhythm abdomen soft extremites- left leg bigger compared to right- no calf tenderness chronic venous stasis changes, both legs gait steady Results - Labs CBC & Chem 7: 06/28/18 23:36 07/01/18 07:07 Laboratory Results - last 24 hr 06/30/18 06:17 Sodium 142 Potassium 3.5 D Chloride 107 Carbon Dioxide 26.1 Anion Gap 9 BUN 27 H Creatinine 1.33 H Estimated GFR 51 L Random Glucose 98 Calcium 8.8 Magnesium 2.3 Microbiology 06/28/18 23:31 Blood - Peripheral Aerobic Blood Culture - Preliminary No growth in 1 day 06/28/18 23:31 Blood - Peripheral Anaerobic Blood Culture - Preliminary No growth in 1 day 06/28/18 23:36 Blood - Peripheral Aerobic Blood Culture - Preliminary No growth in 1 day 06/28/18 23:36 Blood - Peripheral Anaerobic Blood Culture - Preliminary No growth in 1 day Assessment and Plan - Plan This patient is an 82-year-old male with a diagnosis of atrial fibrillation on Eliquis. As per the patient he also has a diagnosis of hypertension. The patient says he began to feel short of breath over the past few days and his symptoms have been worsening. He was also given short of breath on exertion and was having difficulty lying flat and sleeping at night. He was also having a cough, no purulent sputum production. No fevers or chills. No chest pain. No palpitations. He came into the emergency department for evaluation and was found to have a significantly elevated blood pressure. Chest x-ray showed findings consistent with pulmonary vascular congestion. Acute congestive heart failure exacerbation- likely from diastolic failure and due to a fib - improved - continue on lasix 40 mg bid- change to po in am Acute hypoxic respiratory failure secondary to #1- resolved - up and ambulating chronic Atrial fibrillation- -Coreg-n increase to 25 mg po bid - Continue Eliquis. Hypertensive urgency- improved - Coreg increased - on lasix Left leg swelling - get doppler r/op DVT - patient already on Eliquis CKD- creatinine near baseline DVT prophylaxis, patient is currently on Eliquis. Possible DC home today or in am OP ff up with dr. Aviles and cardiology
[2018-06-30] MEDS ORDERED: Carvedilol 12.5 MG Tablet PO ONE (11:00)
--- NOTE | 2018-06-30 11:39 | US ---
EXAM DATE: 06/30/2018 11:37 AM EST AGE/SEX: 82 years / Male INDICATIONS: Left leg swelling. CLINICAL DATA: This is the patient's initial encounter. Patient reports that signs and symptoms have been present for 1 day and indicates a pain score of 0/10. MEDICAL/SURGICAL HISTORY: Hypertension. Afib. None. COMPARISON: No prior exams available for comparison. TECHNIQUE: Venous ultrasound of both lower extremities was performed from the inguinal ligament to t he proximal calf. Real-time, color Doppler and spectral tracing, compression and augmentation techni ques were used. FINDINGS: Normal compression of the deep venous system from the inguinal region to the proximal calf . No echogenic clot is seen. Normal response of the venous system to augmentation and respiration. CONCLUSION: 1. No DVT identified. Electronically signed by: Addy Ramirez MD 06/30/2018 11:38 AM EST
--- NOTE | 2018-07-01 08:10 | P.PNCA ---
Subjective Interval history: Denies dyspnea, CP, dizziness, palpitations, PND. Slept fairly well. Medications and Allergies Active Medications: Active Medications Acetaminophen (Tylenol) 650 mg PO Q4H PRN PRN Reason: Temp > 100.4 Apixaban (Eliquis) 5 mg PO BID [facility] Last Admin: 06/30/18 21:17 Dose: 5 mg Bisacodyl (Dulcolax Supp) 10 mg RECTAL DAILY PRN PRN Reason: SEVERE CONSITIPATION Carvedilol (Coreg) 25 mg PO BID [facility] Last Admin: 06/30/18 21:18 Dose: 25 mg Furosemide (Lasix Inj) 40 mg IV.PUSH BID@0900,1800 [facility] Last Admin: 06/30/18 17:14 Dose: 40 mg Ondansetron HCl (Zofran Inj) 4 mg IV.PUSH Q6H PRN PRN Reason: NAUSEA OR VOMITING Sennosides (Senokot) 17.2 mg PO Q12H PRN PRN Reason: Moderate Constipation Sodium Chloride (Ns Flush) 2 ml IV.FLUSH BID [facility] Last Admin: 06/30/18 21:18 Dose: 2 ml Sodium Chloride (Ns Flush) 2 ml IV.FLUSH UNSCH PRN PRN Reason: FLUSH AFTER USING IV ACCESS Allergies Allergy/AdvReac Type Severity Reaction Status Date / Time No Known Allergies Allergy Verified 06/28/18 23:05 Home Medications Medication Instructions Recorded Confirmed Type apixaban [Eliquis] 5 mg PO DAILY 06/28/18 06/28/18 History Physical Exam Vital signs: Vital Signs 06/30/18 09:00 06/30/18 10:00 06/30/18 10:55 Temperature 97.8 F Pulse Rate 94 H 106 H 77 Respiratory Rate 20 Blood Pressure 126/77 Pulse Oximetry 98 06/30/18 11:00 06/30/18 12:00 06/30/18 13:00 Temperature Pulse Rate 89 79 89 Respiratory Rate Blood Pressure Pulse Oximetry 06/30/18 14:00 06/30/18 14:42 06/30/18 15:00 Temperature 97.9 F Pulse Rate 63 87 72 Respiratory Rate 20 Blood Pressure 115/94 H Pulse Oximetry 96 06/30/18 16:00 06/30/18 17:00 06/30/18 18:00 Temperature Pulse Rate 87 98 H 91 H Respiratory Rate Blood Pressure Pulse Oximetry 06/30/18 19:00 06/30/18 20:00 06/30/18 21:00 Temperature 97.9 F Pulse Rate 87 87 91 H Respiratory Rate 20 Blood Pressure 150/96 H Pulse Oximetry 95 06/30/18 22:00 06/30/18 23:00 07/01/18 00:00 Temperature 98.0 F Pulse Rate 94 H 77 84 Respiratory Rate 16 Blood Pressure 129/76 Pulse Oximetry 93 L 07/01/18 01:00 07/01/18 02:00 07/01/18 03:00 Temperature Pulse Rate 80 82 78 Respiratory Rate Blood Pressure Pulse Oximetry 07/01/18 04:00 07/01/18 05:00 07/01/18 06:00 Temperature 98.2 F Pulse Rate 80 91 H 83 Respiratory Rate 16 Blood Pressure 123/85 Pulse Oximetry 96 Intake & Output 06/30/18 07/01/18 07/01/18 18:59 06:59 18:59 Intake Total 960 / 960 240 / 240 Output Total 1100 / 1100 800 / 800 Balance -140 / -140 -560 / -560 Weight 78.5 kg Intake: Oral 960 / 960 240 / 240 Output: Urine 1100 / 1100 800 / 800 Other: Date of Last Bowel Movement 06/29/18 06/28/18 # Bowel Movements 0 - Constitutional no acute distress - Routine Neck Exam Absent: JVD - Routine Respiratory Exam Present: CTA bilaterally - Routine Cardiovascular Exam Present: S1, S2, murmur. Absent: gallop, irregular rhythm Comments: I/ AJAY diffusely. Normal S2. - Routine Abdominal Exam Present: soft, normoactive bowel sounds. Absent: tenderness, organomegaly - Routine Extremities Exam Present: edema. Absent: cyanosis, clubbing Comments: Trace pretibial edema bilaterally. Results 06/28/18 23:36 06/30/18 06:17 Comprehensive Metabolic Panel 06/30/18 Range/Units 06:17 Sodium 142 (136-145) meq/L Potassium 3.5 D (3.5-5.1) meq/L Chloride 107 (98-107) meq/L Carbon Dioxide 26.1 (21.0-32.0) meq/L BUN 27 H (7-18) mg/dL Creatinine 1.33 H (0.60-1.30) mg/dL Calcium 8.8 (8.5-10.1) mg/dL Intake and Output 06/30/18 07/01/18 07/01/18 22:59 06:59 14:59 Intake Total 960 / 960 240 / 240 Output Total 1100 / 1100 800 / 800 Balance -140 / -140 -560 / -560 Intake: Oral 960 / 960 240 / 240 Output: Urine 1100 / 1100 800 / 800 Other: Date of Last Bowel Movement 06/28/18 06/28/18 # Bowel Movements 0 Weight 78.5 kg - Imaging and Cardiology Imaging: Impressions Venous Doppler Study 06/30/18 10:44 CONCLUSION: 1. No DVT identified. Assessment and Plan - Assessment (1) Congestive heart failure Code(s): I50.9 - Heart failure, unspecified Status: Acute Plan: Doing well. Excellent diuresis since admission. EF 60-65% by echo. Suspect his CHF was precipitated by elevated HR's in the setting of atrial fib and diastolic dysfunction. RECOMMEND await this am's BMP, change to oral furosemide ~40 mg qd, continue carvedilol, OK for discharge from cardiac standpoint (2) Atrial fibrillation Code(s): I48.91 - Unspecified atrial fibrillation Status: Chronic Plan: Stable. Remains in atrial fibrillation. HR's overall acceptable. Continues on apixaban. Suspect atrial fib largely chronic especially with biatrial enlargement on echo. - Plan Code Status: full code Discussed Condition With: patient, at length (1) Congestive heart failure Qualifiers: Heart failure type: diastolic Heart failure chronicity: acute Qualified Code (s): I50.31 - Acute diastolic (congestive) heart failure (2) Atrial fibrillation Qualifiers: Atrial fibrillation type: chronic Qualified Code(s): I48.2 - Chronic atrial fibrillation
[2018-07-01 08:21] LABS: Calcium 8.7 mg/dL (8.5-10.1); Carbon Dioxide 30.1 meq/L (21.0-32.0); Potassium 3.4 meq/L (3.5-5.1)
--- NOTE | 2018-07-01 08:43 | P.PN ---
Subjective Interval history: patient up and ambulating around the hallway independently no chest discomfort slept well overnight no chest pain or shortness of breath Physical Exam Vital signs: Vital Signs 06/30/18 09:00 06/30/18 10:00 06/30/18 10:55 Temperature 97.8 F Pulse Rate 94 H 106 H 77 Respiratory Rate 20 Blood Pressure 126/77 Pulse Oximetry 98 06/30/18 11:00 06/30/18 12:00 06/30/18 13:00 Temperature Pulse Rate 89 79 89 Respiratory Rate Blood Pressure Pulse Oximetry 06/30/18 14:00 06/30/18 14:42 06/30/18 15:00 Temperature 97.9 F Pulse Rate 63 87 72 Respiratory Rate 20 Blood Pressure 115/94 H Pulse Oximetry 96 06/30/18 16:00 06/30/18 17:00 06/30/18 18:00 Temperature Pulse Rate 87 98 H 91 H Respiratory Rate Blood Pressure Pulse Oximetry 06/30/18 19:00 06/30/18 20:00 06/30/18 21:00 Temperature 97.9 F Pulse Rate 87 87 91 H Respiratory Rate 20 Blood Pressure 150/96 H Pulse Oximetry 95 06/30/18 22:00 06/30/18 23:00 07/01/18 00:00 Temperature 98.0 F Pulse Rate 94 H 77 84 Respiratory Rate 16 Blood Pressure 129/76 Pulse Oximetry 93 L 07/01/18 01:00 07/01/18 02:00 07/01/18 03:00 Temperature Pulse Rate 80 82 78 Respiratory Rate Blood Pressure Pulse Oximetry 07/01/18 04:00 07/01/18 05:00 07/01/18 06:00 Temperature 98.2 F Pulse Rate 80 91 H 83 Respiratory Rate 16 Blood Pressure 123/85 Pulse Oximetry 96 Intake & Output 06/30/18 07/01/18 07/01/18 18:59 06:59 18:59 Intake Total 960 / 960 240 / 240 Output Total 1100 / 1100 800 / 800 Balance -140 / -140 -560 / -560 Weight 78.5 kg Intake: Oral 960 / 960 240 / 240 Output: Urine 1100 / 1100 800 / 800 Other: Date of Last Bowel Movement 06/29/18 06/28/18 # Bowel Movements 0 Narrative: awake and alert, no acute distress anicteric neck supple lungs- no rales irregularly irregular rhythm- rate in the 80s abdomen soft extremities- left leg slightly bigger compared to right- no calf tenderness, no edema chronic venous stasis changes, both legs gait steady Results - Labs CBC & Chem 7: 06/28/18 23:36 07/01/18 07:07 Laboratory Results - last 24 hr 07/01/18 07:07 Sodium 141 Potassium 3.4 L Chloride 102 Carbon Dioxide 30.1 Anion Gap 9 BUN 24 H Creatinine 1.34 H Estimated GFR 51 L Random Glucose 96 Calcium 8.7 Microbiology 06/28/18 23:31 Blood - Peripheral Aerobic Blood Culture - Preliminary No growth in 2 days 06/28/18 23:31 Blood - Peripheral Anaerobic Blood Culture - Preliminary No growth in 2 days 06/28/18 23:36 Blood - Peripheral Aerobic Blood Culture - Preliminary No growth in 2 days 06/28/18 23:36 Blood - Peripheral Anaerobic Blood Culture - Preliminary No growth in 2 days - Imaging Impressions Venous Doppler Study 06/30/18 10:44 CONCLUSION: 1. No DVT identified. Assessment and Plan - Plan This patient is an 82-year-old male with a diagnosis of atrial fibrillation on Eliquis. As per the patient he also has a diagnosis of hypertension. The patient says he began to feel short of breath over the past few days and his symptoms have been worsening. He was also given short of breath on exertion and was having difficulty lying flat and sleeping at night. He was also having a cough, no purulent sputum production. No fevers or chills. No chest pain. No palpitations. He came into the emergency department for evaluation and was found to have a significantly elevated blood pressure. Chest x-ray showed findings consistent with pulmonary vascular congestion. Acute congestive heart failure exacerbation- likely from diastolic failure and due to a fib - improved, H - change to po Lasix 40 mg daily - BMP today- creatinine stable - cleared by Cardiology MIld hypokalemia- give po KCL 30 meq po x 1 - home with KCL 10 meq po daily, - BMP on Thursday with results to PCP Acute hypoxic respiratory failure secondary to #1- resolved- good sats at room air - up and ambulating chronic Atrial fibrillation- rate controlled -Coreg- 25 mg po bid - Continue Eliquis. Hypertensive urgency- improved - Coreg increased - on lasix 40 mg daily MIld Left leg larger than right - Doppler negative for DVT - patient already on Eliquis CKD- creatinine near baseline - BMP as OP c/o PCP DVT prophylaxis, patient is currently on Eliquis. DC home today OP ff up with dr. Aviles and cardiology- Dr. Khan
[2018-07-01] MEDS ORDERED: Furosemide 40 MG Tablet PO SCH (09:00)
[2018-07-01] MEDS: Carvedilol 12.5 MG Tablet PO SCH (09:01)
[2018-07-01 09:46] VITALS: BP 141/96; RESP 18; TEMP 98.4; O2SAT 98
[2018-07-01 11:18] VITALS: PULSE 78
== END 2018-07-01 11:29 | disposition home or self-care (01) ==
LOC: NEPC 22:58 → NEDA 06-29 03:48 → HCIS 06-29 13:39
PROVIDERS: ADMIT Internal Medicine; ATTEND Internal Medicine